=== PATIENT | male | born 1995 | race Hispanic/Latino ===

== ENCOUNTER 2020-02-24 15:29 | Emergency (ER) | payer OTHER ==
[2020-02-24] MEDS ORDERED: NA CHLORIDE 0.9% 1,000 ML ONE ×3 (15:47→17:27)
[2020-02-24] MEDS ORDERED: ONDANSETRON 4 MG/2 ML VIAL ONE (15:47)
[2020-02-24 15:51] LABS: Absolute Lymphocytes (CBC) 2.4 K/uL (0.7-4.9); Basophils % 0.7 % (0-1.3); Hematocrit 46.5 % (39.6-49.0); Lymphocytes % 24.3 % (15.3-44.8); MPV 8.6 fL (7.6-11.3); RBC Red Blood Cell Count 5.26 M/uL (4.33-5.43)
[2020-02-24 15:53] LABS: Protime INR 1.17
[2020-02-24 16:12] LABS: ALT/SGPT 16 U/L (12-78); AST/SGOT 23 U/L (15-37); Albumin 4.5 g/dL (3.4-5.0); Alkaline Phosphatase 51 U/L (45-117); BUN Blood Urea Nitrogen 20 mg/dL (7-18); Bicarbonate 23 mmol/L (21-32); Bilirubin Direct 0.3 mg/dL (0-0.2); Bilirubin Total 1.1 mg/dL (0.2-1.0); Glucose Level 198 mg/dL (74-106); Potassium 3.8 mmol/L (3.5-5.1); Protein, Total 8.4 g/dL (6.4-8.2); Sodium Level 139 mmol/L (136-145)
[2020-02-24 17:32] LABS: Barbiturates NEGATIVE (NEGATIVE); Benzodiazepines NEGATIVE (NEGATIVE); Cocaine NEGATIVE (NEGATIVE); METHAMPHETAM POSITIVE (NEGATIVE); Methadone NEGATIVE (NEGATIVE); Opiates NEGATIVE (NEGATIVE); Phencyclidine NEGATIVE (NEGATIVE); THC Cannibis NEGATIVE (NEGATIVE)
[2020-02-24 17:40] LABS: Urine Blood NEGATIVE (NEG); Urine Glucose TRACE (NEG); Urine Protein 3+ (NEG); Urine Specific Gravity >1.030 (1.005-1.030)
[2020-02-24 17:55] LABS: Blood Morphology Comment NOT SEEN (NOT SEEN); Platelet Estimate ADEQ; White Blood Cell Scan OK (OK)
--- NOTE | 2020-02-24 18:03 | EDPHYS ---
Physician Documentation [facility] Name: Yousif Menendez Age: 24 yrs Sex: Male : 1995 Arrival Date: 02/24/2020 Time: 15:32 Bed 3 Private MD: ED Physician Ehsan Osorio HPI: 02/23 15:33 This 24 yrs old Male presents to ER via Unassigned with complaints of Possible cp Drug Abuse. 15:33 The patient presents to the emergency department with a possible overdose, found cp unconscious by EMS with friends administering CPR. 15:33 Context: Time: the patient's OD/poisoning occurred at an unknown time, the OD/poisoning cp occurred at local motel, Psychiatric history: it is unknown whether or not the patient has an antecedent psychiatric history, Previous OD/poisoning history: It is unknown if the patient has had similar previous episodes. Associated signs and symptoms: The patient has no apparent associated signs or symptoms. Given 2 mg of Narcan by EMS. Historical: - Allergies: 15:45 Pollen; tw2 - Home Meds: 15:45 None [Active]; tw2 - PMHx: 15:45 None; tw2 - PSHx: 15:45 None; tw2 - Immunization history:: Adult Immunizations. - Social history:: Smoking status: . ROS: 15:35 Constitutional: Negative for fever. cp 15:35 Cardiovascular: Negative for chest pain. cp 15:35 Respiratory: Negative for shortness of breath. 15:35 Abdomen/GI: Positive for nausea, Negative for abdominal pain. 15:35 Neuro: Negative for altered mental status, weakness. 15:35 Psych: Negative for visual hallucinations, homicidal ideation, suicide gesture, suicidal ideation. 15:35 All other systems are negative. Exam: 15:40 Head/Face: Normocephalic, atraumatic. cp 15:40 Constitutional: The patient appears in no acute distress, alert, awake, non-diaphoretic, non-toxic, well developed, well nourished. 15:40 Eyes: Periorbital structures: appear normal, Pupils: equal, round, and reactive to light and accomodation, Extraocular movements: intact throughout, Conjunctiva: normal, no exudate, no injection, Lids and lashes: appear normal, bilaterally. 15:40 ENT: External ear(s): are unremarkable, Nose: is normal, Mouth: Lips: moist, Oral mucosa: moist, Posterior pharynx: Airway: no evidence of obstruction, patent. 15:40 Neck: ROM/movement: is normal, is supple, without pain, no range of motions limitations. 15:40 Chest/axilla: Inspection: normal, Palpation: is normal, no crepitus, no tenderness. 15:40 Cardiovascular: Rate: tachycardic, Rhythm: regular. 15:40 Respiratory: the patient does not display signs of respiratory distress, Respirations: normal, no use of accessory muscles, labored breathing, is not present, Breath sounds: are clear throughout, no decreased breath sounds, no stridor. 15:40 Abdomen/GI: Inspection: abdomen appears normal, Palpation: abdomen is soft and non-tender, in all quadrants. 15:40 Neuro: Orientation: to person, place \T\ time. Mentation: able to follow commands, Motor: moves all fours, strength is normal. 15:44 ECG was reviewed by the Attending Physician. Vital Signs: 15:30 BP 128 / 97; Pulse 112; Resp 17; Temp 98.8(O); Pulse Ox 96% on R/A; Weight 63.5 kg (R); tw2 Height 6 ft. 0 in. (182.88 cm); Pain 0/10; 16:00 BP 114 / 78; Pulse 69; Resp 17; Pulse Ox 100% on R/A; tw2 16:44 BP 114 / 78; Pulse 91; Resp 16; Pulse Ox 95% on R/A; tw2 17:46 BP 110 / 75; Pulse 71; Resp 16; Pulse Ox 95% on R/A; tw2 15:30 Body Mass Index 18.99 (63.50 kg, 182.88 cm) tw2 Jeff Coma Score: 15:40 Eye Response: spontaneous(4). Verbal Response: oriented(5). Motor Response: obeys cp commands(6). Total: 15. MDM: 15:32 Patient medically screened. martin 15:45 Differential diagnosis: polypharmacy, over medication, illegal drug use, ETOH cp intoxication. 18:02 Data reviewed: vital signs, nurses notes, lab test result(s), EKG. 18:02 Test interpretation: by ED physician or midlevel provider: ECG. Counseling: I had a cp detailed discussion with the patient and/or guardian regarding: the historical points, exam findings, and any diagnostic results supporting the discharge/admit diagnosis, lab results, to return to the emergency department if symptoms worsen or persist or if there are any questions or concerns that arise at home. Response to treatment: the patient's symptoms have markedly improved after treatment, and as a result, I will discharge patient. ED course: VSS. Patient with family. Will discharge to home for continued monitoring. 02/23 15:33 Order name: Acetaminophen; Complete Time: 16:20 02/23 15:33 Order name: Basic Metabolic Panel; Complete Time: 16:20 02/23 16:20 Interpretation: Normal except: GLUC 198; BUN 20; CRE 1.38; GFR 64. 02/23 15:33 Order name: CBC with Diff 02/23 16:21 Interpretation: Normal except: MN% 16.7; MNA 1.6. 02/23 15:33 Order name: ETOH Level; Complete Time: 17:36 02/23 15:33 Order name: Hepatic Function; Complete Time: 16:20 02/23 16:21 Interpretation: Normal except: BILIT 1.1; BILID 0.3; TP 8.4; GLOB 3.9. 02/23 15:33 Order name: PT-INR; Complete Time: 16:20 02/23 15:33 Order name: Ptt, Activated; Complete Time: 16:20 02/23 15:33 Order name: Salicylate; Complete Time: 17:36 02/23 15:33 Order name: Urine Drug Screen; Complete Time: 17:36 02/23 17:36 Interpretation: METHAMPHETAMINE POSITIVE; Reviewed. 02/23 16:58 Order name: CPK; Complete Time: 17:36 02/23 17:37 Interpretation: Abnormal: CPK 445. 02/23 16:58 Order name: LAB Add On 02/23 17:11 Order name: Urine Dipstick--Ancillary (enter results); Complete Time: 17:47 02/23 17:55 Order name: CBC Smear Scan EDMS 02/23 15:33 Order name: EKG; Complete Time: 15:34 02/23 15:33 Order name: EKG - Nurse/Tech; Complete Time: 15:41 cp 02/23 15:33 Order name: IV Saline Lock; Complete Time: 15:41 02/23 15:33 Order name: Labs collected and sent; Complete Time: 15:41 02/23 15:33 Order name: Urine Dipstick-Ancillary (obtain specimen); Complete Time: 17:13 02/23 15:33 Order name: IV; Complete Time: 15:41 cp EC:44 Rate is 100 beats/min. Rhythm is regular. CA interval is normal. QRS interval is cp normal. QT interval is normal. Interpreted by me. Reviewed by me. Administered Medications: 15:38 Drug: Zofran (Ondansetron) 4 mg Route: IVP; Site: right forearm; tw2 16:35 Follow up: Response: No adverse reaction; Nausea is decreased tw2 15:38 Drug: NS 0.9% 1000 ml Route: IV; Rate: 1 bolus; Site: right forearm; tw2 16:43 Follow up: Response: No adverse reaction; IV Status: Completed infusion; IV Intake: tw2 1000ml 16:43 Drug: NS 0.9% 1000 ml Route: IV; Rate: 1 bolus; Site: right antecubital; tw2 18:00 Follow up: Response: No adverse reaction; IV Status: Completed infusion; IV Intake: tw2 1000ml 17:18 Drug: NS 0.9% 1000 ml Route: IV; Rate: 125 ml/hr; Site: right forearm; tw2 18:09 Follow up: IV Status: Order to discontinue infusion tw2 17:53 Drug: Rocephin 1 grams Route: IV; Rate: calculated rate; Site: right forearm; tw2 18:02 Follow up: IV Status: Completed infusion tw2 18:09 Follow up: Response: No adverse reaction tw2 Disposition: 18:20 Chart complete. 02/24 08:07 Co-signature as Attending Physician, Ehsan Osorio MD I agree with the assessment and martin plan of care. Disposition: 02/24/20 18:02 Discharged to Home. Impression: Rhabdomyolysis, Adverse effect of amphetamines. - Condition is Stable. - Discharge Instructions: Rhabdomyolysis, Urinary Tract Infection, Adult, Stimulant Use Disorder-Methamphetamines. - Prescriptions for Keflex 500 mg Oral Capsule - take 1 capsule by ORAL route every 12 hours for 10 days; 20 capsule. - Medication Reconciliation Form, Thank You Letter, Antibiotic Education, Prescription Opioid Use form. - Follow up: Private Physician; When: 1 - 2 days; Reason: Recheck today's complaints. - Problem is new. - Symptoms have improved. Signatures: Dispatcher [employer] EDEhsan Murphy MD MD cha Page, Corey, PA PA cp Janki Raman RN RN tw2 Corrections: (The following items were deleted from the chart) 02/23 16:21 16:21 Normal except: MN% 16.7. cp cp 18:16 18:02 02/24/2020 18:02 Discharged to Home. Impression: Rhabdomyolysis; Adverse effect tw2 of amphetamines. Condition is Stable. Forms are Medication Reconciliation Form, Thank You Letter, Antibiotic Education, Prescription Opioid Use. Follow up: Private Physician; When: 1 - 2 days; Reason: Recheck today's complaints. Problem is new. Symptoms have improved. cp
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
[2020-02-24] MEDS ORDERED: CEFTRIAXONE/SWI 1gm 1 GM/10 ML SYR ONE (18:06)
[2020-02-24 18:51] VITALS: TEMP 98.8
[2020-02-24 19:13] VITALS: O2SAT 95
[2020-02-24 19:19] VITALS: BP 110/75
--- NOTE | 2020-02-25 05:39 | EKG ---
Test Date: 2020-02-24 Test Time: 15:43:53 Geological Manager: AYESHA MEASUREMENT RESULTS: Intervals: Rate: 100 AL: 148 QRSD: 88 QT: 352 QTc: 454 [place]: P: 70 AL: 148 QRS: 80 T: 38 INTERPRETIVE STATEMENTS: Normal sinus rhythm Minimal voltage criteria for LVH, may be normal variant Borderline ECG No previous ECG available for comparison Electronically Signed On 02-25-20 05:38:04 CDT by Matt Ventura
== END 2020-02-24 18:16 | disposition home or self-care (01) ==
LOC: ER 15:29
DX: M62.82 Rhabdomyolysis (principal); T43.625A Adverse effect of amphetamines, initial encounter; Z91.048 Other nonmedicinal substance allergy status
CPT/HCPCS: 96361; 93005; 85025; 80048; 36415; 80320; 82550; 80329 ×2; 85610; 80076; 80307 ×8; 85730; 81003; 96375; 96374; 99284; J0696; J7030 ×3; J2405

== ENCOUNTER 2020-05-23 00:50 | Emergency (ER) | payer OTHER ==
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
--- NOTE | 2020-05-23 01:50 | EDPHYS ---
Physician Documentation [facility] Name: Yousif Menendez Age: 24 yrs Sex: Male : 1995 Arrival Date: 05/23/2020 Time: 00:51 Bed 19 Private MD: Micah Peters H ED Physician Dilan Cruz HPI: 05/23 01:21 This 24 yrs old Male presents to ER via Unassigned with complaints of finger mh7 infection. 01:21 The patient or guardian reports a burn, from pipe used for smoking methamphetamine. The mh7 complaints affect the left hand middle and little finger tips, right hand little finger tip. Context: The problem was sustained at home, resulted from using pipe to smoke methamphetamine. Onset: The symptoms/episode began/occurred 5 day(s) ago. Modifying factors: The symptoms are alleviated by nothing, the symptoms are aggravated by nothing. Associated signs and symptoms: Pertinent negatives: cyanosis distally, decreased sensation distally, fever, nausea, numbness distally, tingling distally, vomiting. 01:36 Severity of symptoms: At their worst the symptoms were moderate, 3 day(s) ago, [facility] the symptoms are unchanged. Historical: - Allergies: 01:24 Pollen; ll2 - Home Meds: 01:24 None [Active]; ll2 - PMHx: 01:24 None; ll2 - PSHx: 01:24 None; ll2 - Immunization history:: Adult Immunizations up to date, Last tetanus immunization: up to date. - Social history:: Smoking status: Patient reports the use of cigarette tobacco products, smokes one pack cigarettes per day. ROS: 01:36 Constitutional: Negative for fever, chills, and weight loss, Eyes: Negative for injury, mh7 pain, redness, and discharge, ENT: Negative for injury, pain, and discharge, Neck: Negative for injury, pain, and swelling, Cardiovascular: Negative for chest pain, palpitations, and edema, Respiratory: Negative for shortness of breath, cough, wheezing, and pleuritic chest pain, Abdomen/GI: Negative for abdominal pain, nausea, vomiting, diarrhea, and constipation, Back: Negative for injury and pain, : Negative for injury, bleeding, discharge, and swelling, Neuro: Negative for headache, weakness, numbness, tingling, and seizure, Psych: Negative for depression, anxiety, suicide ideation, homicidal ideation, and hallucinations, Allergy/Immunology: Negative for hives, rash, and allergies, Endocrine: Negative for neck swelling, polydipsia, polyuria, polyphagia, and marked weight changes, Hematologic/Lymphatic: Negative for swollen nodes, abnormal bleeding, and unusual bruising. Exam: 01:36 Constitutional: This is a well developed, well nourished patient who is awake, alert, mh7 and in no acute distress. Head/Face: Normocephalic, atraumatic. Eyes: Pupils equal round and reactive to light, extra-ocular motions intact. Lids and lashes normal. Conjunctiva and sclera are non-icteric and not injected. Cornea within normal limits. Periorbital areas with no swelling, redness, or edema. Neck: Trachea midline, no thyromegaly or masses palpated, and no cervical lymphadenopathy. Supple, full range of motion without nuchal rigidity, or vertebral point tenderness. No Meningismus. Chest/axilla: Normal chest wall appearance and motion. Nontender with no deformity. No lesions are appreciated. Cardiovascular: Regular rate and rhythm with a normal S1 and S2. No gallops, murmurs, or rubs. Normal PMI, no JVD. No pulse deficits. Respiratory: Lungs have equal breath sounds bilaterally, clear to auscultation and percussion. No rales, rhonchi or wheezes noted. No increased work of breathing, no retractions or nasal flaring. Abdomen/GI: Soft, non-tender, with normal bowel sounds. No distension or tympany. No guarding or rebound. No evidence of tenderness throughout. Back: No spinal tenderness. No costovertebral tenderness. Full range of motion. 01:36 Neuro: Awake and alert, GCS 15, oriented to person, place, time, and situation. Cranial nerves II-XII grossly intact. Motor strength 5/5 in all extremities. Sensory grossly intact. Cerebellar exam normal. Normal gait. Psych: Awake, alert, with orientation to person, place and time. Behavior, mood, and affect are within normal limits. 01:36 Musculoskeletal/extremity: Extremities: noted in the palmar aspect of distal phalanx of left middle finger and palmar aspect of distal phalanx of left little finger: erythema, swelling, tenderness, noted in the palmar aspect of distal phalanx of rihgt little finger: erythema, ROM: intact in all extremities, Circulation is intact in all extremities. Pulses: are normal with no appreciated deficits, Perfusion: the patient is normally perfused throughout, Perfusion: the extremity is normally perfused throughout, Sensation intact. Compartment Syndrome exam of affected extremity: is normal. no numbness, no tingling, no sensation deficit, no palor, no weak pulses, Joints: All joints appear normal with full range of motion. Weight bearing: able to fully bear weight, without difficulty, Tendon exam: specific tendon testing normal through active and passive range of motion 01:36 Musculoskeletal/extremity: less than 1% burn total BSA of all areas combined. 01:36 Skin: injury, burn(s), 2nd degree burn injury covers approximately 0.25% of the total body surface area, and is located on the palmar aspect of distal phalanx of left middle finger and palmar aspect of distal phalanx of left little finger and palmar aspect of distal phalanx of right little finger. Vital Signs: 01:10 BP 144 / 89; Pulse 87; Resp 18; Temp 97.8; Pulse Ox 98% on R/A; ll2 01:45 BP 144 / 89; Pulse 90; Resp 18; Temp 97.8; Pulse Ox 99% on R/A; ll2 Procedures: 01:36 Burn Care: the burn(s) are located on the palmar aspect of distal phalanx of left mh7 middle finger and palmar aspect of distal phalanx of left little finger and palmar aspect distal phalanx of right little finger, cleaned with Hibiclens, dressed with antibiotic ointment, non-stick dressing. MDM: 01:36 Differential diagnosis: contusion, abrasion, paronychia, felon, burn. Data reviewed: [facility] vital signs, nurses notes. Data interpreted: Pulse oximetry: on room air is 98 %. Interpretation: normal. Counseling: I had a detailed discussion with the patient and/or guardian regarding: the historical points, exam findings, and any diagnostic results supporting the discharge/admit diagnosis, the presence of at least one elevated blood pressure reading (>120/80) during this emergency department visit, the need for outpatient follow up, to return to the emergency department if symptoms worsen or persist or if there are any questions or concerns that arise at home. Response to treatment: the patient's symptoms have markedly improved after treatment. 01:50 Patient medically screened. [facility] Administered Medications: 01:45 Drug: Bacitracin Ointment (500 unit/g) 1 application Route: Topical; Site: affected ll2 area; 01:45 Drug: KeFLEX 500 mg Route: PO; ll2 02:00 Follow up: Response: No adverse reaction ll2 Disposition: 05/23/20 01:50 Discharged to Home. Impression: Fingertip Augustin, Methamphetamine Abuse, Burn of second degree of multiple left fingers (nail), not including thumb, Burn of second degree of single finger (nail) except thumb. - Condition is Stable. - Discharge Instructions: Stimulant Use Disorder-Methamphetamines, Burn Care, Aobm-sw-[id number], Second-Degree Burn. - Prescriptions for bacitracin - apply 1 application by TOPICAL route 3 times per day for 7 days; 1 tube. Ibuprofen 800 mg Oral Tablet - take 1 tablet by ORAL route every 8 hours As needed take with food; 15 tablet. Keflex 500 mg Oral Capsule - take 1 capsule by ORAL route every 6 hours for 10 days; 40 capsule. - Medication Reconciliation Form, Thank You Letter, Antibiotic Education, Prescription Opioid Use form. - Follow up: Private Physician; When: 1 - 2 days; Reason: Worsening of condition, Recheck today's complaints, Continuance of care, Re-evaluation by your physician. Follow up: Reymundo Guidry MD; When: 1 - 2 days; Reason: Worsening of condition, Recheck today's complaints. - Problem is an ongoing problem. - Symptoms have improved. Signatures: Toña Simpson RN RN 2 Dilan Cruz MD MD [facility] Corrections: (The following items were deleted from the chart) 02:24 01:50 05/23/2020 01:50 Discharged to Home. Impression: Fingertip Augustin; Methamphetamine ll2 Abuse; Burn of second degree of multiple left fingers (nail), not including thumb; Burn of second degree of single finger (nail) except thumb. Condition is Stable. Forms are Medication Reconciliation Form, Thank You Letter, Antibiotic Education, Prescription Opioid Use. Follow up: Private Physician; When: 1 - 2 days; Reason: Worsening of condition, Recheck today's complaints, Continuance of care, Re-evaluation by your physician. Follow up: Reymundo Guidry; When: 1 - 2 days; Reason: Worsening of condition, Recheck today's complaints. Problem is an ongoing problem. Symptoms have improved. mh7
[2020-05-23] MEDS ORDERED: CEPHALEXIN 250 MG CAP ONE (01:58)
[2020-05-23 02:28] VITALS: BP 144/89; TEMP 97.8
[2020-05-23 02:30] VITALS: O2SAT 99
== END 2020-05-23 02:24 | disposition home or self-care (01) ==
LOC: ER 00:50
DX: T23.232A Burn of second degree of multiple left fingers (nail), not including thumb, initial encounter (principal); F15.10 Other stimulant abuse, uncomplicated; F17.210 Nicotine dependence, cigarettes, uncomplicated
CPT/HCPCS: 99283

== ENCOUNTER 2023-12-01 15:00 | Emergency (ER) | payer OTHER, SELFPAY ==
[2023-12-01] MEDS ORDERED: IBUPROFEN 400 MG TAB ONE (15:17)
[2023-12-01] MEDS ORDERED: IBUPROFEN 200 MG TAB PO ONE (15:17)
--- NOTE | 2023-12-01 16:24 | RAD REPORT ---
EXAM DESCRIPTION: RAD - Hand Right 3 View - 12/01/2023 4:06 pm CLINICAL HISTORY: PAIN COMPARISON: <Comparisons> FINDINGS: Soft tissue swelling is seen laterally. Bony fragment along the dorsum of the wrist is non specific in age indeterminate, correlate with point tenderness suggested.
--- NOTE | 2023-12-01 16:27 | EDPHYS ---
Physician Documentation [facility] Name: Yousif Menendez Age: 28 yrs Sex: Male : 1995 Arrival Date: 12/01/2023 Time: 15:00 Bed 10 Private MD: ED Physician Chase Rose HPI: 11/30 15:43 This 28 yrs old Male presents to ER via Ambulatory with complaints of Hand kb Injury. 15:43 Pt is a 28 year old male who presents for pain and swelling to right hand after falling kb 2 days ago. States he went to work today and his boss told him he had to come get it checked out. . Historical: - Allergies: 15:15 Pollen; tl4 - Home Meds: 15:15 None [Active]; tl4 - PMHx: 15:15 None; tl4 - PSHx: 15:15 None; tl4 - Immunization history:: Adult Immunizations unknown. - Infectious Disease History:: Denies. - Social history:: Smoking status: Patient reports the use of cigarette tobacco products, denies chronic smoking, but will smoke occasionally. ROS: 15:43 Constitutional: As per HPI kb Exam: 15:43 Constitutional: This is a well developed, well nourished patient who is awake, alert, kb and in no acute distress. Head/Face: Normocephalic, atraumatic. ENT: Moist Mucous membranes Cardiovascular: Regular rate Respiratory: Respirations even and unlabored. No increased work of breathing. Talking in full sentences Skin: Warm, dry with normal turgor. Normal color. Neuro: Awake and alert, GCS 15, oriented to person, place, time, and situation. Moves all extremities. Normal gait. 15:43 Musculoskeletal/extremity: Extremities: grossly normal except: noted in the right hand: pain, swelling, ROM: intact in all extremities, Circulation is intact in all extremities. Sensation intact. Vital Signs: 15:10 BP 154 / 81; Pulse 57; Resp 16; Temp 98.6; Pulse Ox 100% on R/A; Weight 70.31 kg; mb9 Height 6 ft. 0 in. ; Pain 8/10; 16:42 Pulse 61; Resp 18; Pulse Ox 100% on R/A; mb9 15:10 Body Mass Index 21.02 (70.31 kg, 182.88 cm) mb9 15:10 Pain Scale: Adult mb9 MDM: 15:07 Patient medically screened. kb 15:44 Differential diagnosis: dislocation, closed fracture, contusion. Data reviewed: vital kb signs, nurses notes. 16:26 Independent interpretation of the following test(s) in the Emergency Department X-Ray: kb My interpretation is no fracture. Counseling: I had a detailed discussion with the patient and/or guardian regarding the historical points, exam findings, and any diagnostic results supporting the discharge/admit diagnosis, radiology results, the need for outpatient follow up, a family practitioner, to return to the emergency department if symptoms worsen or persist or if there are any questions or concerns that arise at home. 11/30 15:15 Order name: Hand Right 3 View XRAY; Complete Time: 16:25 kb Administered Medications: 15:21 Drug: Ibuprofen PO 600 mg PO once Route: PO; mb9 16:12 Follow up: Response: No adverse reaction mb9 Disposition: 19:03 Co-signature as Attending Physician, Chase Rose MD I reviewed the patient's care rn provided by the Advanced Practice Provider and agree with the diagnosis and treatment plan. Disposition Summary: 12/01/23 16:27 Discharge Ordered Notes: Location: Home kb Condition: Stable kb Diagnosis - Contusion of right hand kb Followup: kb - With: Emergency Department - When: As needed - Reason: Worsening of condition Followup: kb - With: Private Physician - When: 2 - 3 days - Reason: Recheck today's complaints, Continuance of care, Re-evaluation by your physician Discharge Instructions: - Discharge Summary Sheet kb - Hand Contusion, [id number] kb Forms: - Work release form kb - Medication Reconciliation Form kb - Antibiotic Education kb - Prescription Opioid Use kb - Patient Portal Instructions kb - Leadership Thank You Letter kb Signatures: Dispatcher [employer] Katharina Calix, BRADC LUMITE INJECTOR-Chase Almanzar MD MD rn Wilkerson, Odette Ornelas RN RN mb9 Allen Bowers RN RN tl4
--- NOTE | 2023-12-01 16:27 | ER ---
Nurse's Notes [facility] Name: Yousif Menendez Age: 28 yrs Sex: Male : 1995 Arrival Date: 12/01/2023 Time: 15:00 Bed 10 Private MD: Diagnosis: Contusion of right hand Presentation: 11/30 15:10 Chief complaint: Patient states: Pt states he fell x 2 on his right hand on November 28. tl4 +swelling +bruising. Coronavirus screen: At this time, the client does not indicate any symptoms associated with coronavirus-19. Ebola Screen: No symptoms or risks identified at this time. Initial Sepsis Screen: Does the patient meet any 2 criteria? No. Patient's initial sepsis screen is negative. Does the patient have a suspected source of infection? No. Patient's initial sepsis screen is negative. Risk Assessment: Do you want to hurt yourself or someone else? Patient reports no desire to harm self or others. Onset of symptoms was November 29, 2023. 15:10 Method Of Arrival: Ambulatory tl4 15:10 Acuity: PARK 4 tl4 Triage Assessment: 15:15 General: Appears in no apparent distress. Behavior is calm, cooperative. Pain: tl4 Complains of pain in right hand. EENT: No signs and/or symptoms were reported regarding the EENT system. Neuro: Level of Consciousness is awake, alert, obeys commands, Oriented to person, place, time, situation. Cardiovascular: Capillary refill < 3 seconds Patient's skin is warm and dry. Respiratory: Airway is patent Respiratory effort is even, unlabored, Respiratory pattern is regular, symmetrical. GI: No signs and/or symptoms were reported involving the gastrointestinal system. : No signs and/or symptoms were reported regarding the genitourinary system. Derm: No signs and/or symptoms reported regarding the dermatologic system. Musculoskeletal: Swelling present in right hand. Injury Description: Bruise sustained to right hand. Historical: - Allergies: 15:15 Pollen; tl4 - Home Meds: 15:15 None [Active]; tl4 - PMHx: 15:15 None; tl4 - PSHx: 15:15 None; tl4 - Immunization history:: Adult Immunizations unknown. - Infectious Disease History:: Denies. - Social history:: Smoking status: Patient reports the use of cigarette tobacco products, denies chronic smoking, but will smoke occasionally. Screenin:23 [facility] ED Fall Risk Assessment (Adult) History of falling in the last 3 months, mb9 including since admission Yes- single mechanical fall (1 pt) Confusion or Disorientation No (0 pts) Intoxicated or Sedated No (0 pts) Impaired Gait No (0 pts) Mobility Assist Device Used No (0 pt) Altered Elimination No (0 pt) Score/Fall Risk Level 0 - 2 = Low Risk Oriented to surroundings, Maintained a safe environment, Educated pt \T\ family on fall prevention, incl call for assistance when getting out of bed. Abuse screen: Denies threats or abuse. Nutritional screening: No deficits noted. Tuberculosis screening: No symptoms or risk factors identified. Assessment: 15:22 General: Appears in no apparent distress. Behavior is calm, cooperative. Pain: mb9 Complains of pain in right hand Pain does not radiate. Pain currently is 7 out of 10 on a pain scale. Quality of pain is described as throbbing, Pain began 2-3 days ago. Neuro: Harris Agitation-Sedation Scale (RASS): 0 - Alert and Calm Level of Consciousness is awake, alert, obeys commands, Oriented to person, place, time, situation, Appropriate for age. Cardiovascular: Patient's skin is warm and dry. Respiratory: Airway is patent Respiratory effort is even, unlabored, Respiratory pattern is regular, symmetrical. GI: No signs and/or symptoms were reported involving the gastrointestinal system. : No signs and/or symptoms were reported regarding the genitourinary system. EENT: No signs and/or symptoms were reported regarding the EENT system. Derm: Bruising that is dark purple, on right hand. Musculoskeletal: Swelling present in right hand. Vital Signs: 15:10 BP 154 / 81; Pulse 57; Resp 16; Temp 98.6; Pulse Ox 100% on R/A; Weight 70.31 kg; mb9 Height 6 ft. 0 in. ; Pain 8/10; 16:42 Pulse 61; Resp 18; Pulse Ox 100% on R/A; mb9 15:10 Body Mass Index 21.02 (70.31 kg, 182.88 cm) mb9 15:10 Pain Scale: Adult 9 ED Course: 15:03 Patient arrived in ED. mg5 15:07 Katharina Deleon FNP-C is [facility]. kb 15:07 Chase Rose MD is Attending Physician. kb 15:15 Triage completed. tl4 15:16 Arm band placed on left wrist. tl4 15:17 Odette Rueda, RN is Primary Nurse. mb9 15:24 Bed in low position. Call light in reach. Side rails up X 1. Provided Education on: mb9 press call light if needing anything. Client placed on continuous cardiac and pulse oximetry monitoring. NIBP monitoring applied. 16:08 Hand Right 3 View XRAY In Process Unspecified. EDMS 16:13 No provider procedures requiring assistance completed. Patient did not have IV access mb9 during this emergency room visit. Administered Medications: 15:21 Drug: Ibuprofen PO 600 mg PO once Route: PO; mb9 16:12 Follow up: Response: No adverse reaction mb9 Medication: 15:24 VIS not applicable for this client. mb9 Outcome: 16:27 Discharge ordered by MD. kb 16:42 Discharged to home ambulatory, mb9 16:42 Condition: stable 16:42 Discharge instructions given to patient, Instructed on discharge instructions, follow up and referral plans. Demonstrated understanding of instructions, follow-up care, 16:42 Patient left the ED. mb9 Signatures: Dispatcher [employer] EDOR Katharina Deleon FNP-C CREDIT CONTROL CLERK-Odette Man, RN RN mb9 Faiza Bah mg5 Allen Bowers RN RN tl4 Corrections: (The following items were deleted from the chart) 15:17 15:10 BP 154 / 81; Pulse 57bpm; Resp 16bpm; Pulse Ox 100% RA; Temp 37.8F; 70.31 kg; mb9 Height 6 ft. 0 in.; BMI: 21.0; Pain 8/10, Adult; tl4
[2023-12-01 17:11] VITALS: BP 154/81; TEMP 98.6; O2SAT 100
== END 2023-12-01 16:42 | disposition home or self-care (01) ==
LOC: ER 15:00
DX: S60.221A Contusion of right hand, initial encounter (principal)
CPT/HCPCS: 99283